=== PATIENT | male | born 1965 | race Caucasian/White ===

== ENCOUNTER 2020-03-07 07:32 | Inpatient (IN) ==
[~2020-03-07 07:32] MED LIST: TOTAL JOINT MIXTURE (100ML) INTRAART ONE
[2020-03-07] MEDS ORDERED: *HR* Midazolam HCl 2 MG/2 ML VIAL ONE ×2 (08:12→09:38)
[2020-03-07] MEDS ORDERED: *HR* FentaNYL (PF) 100 MCG/2 ML VIAL ONE ×3 (08:12→11:04)
[2020-03-07] MEDS ORDERED: ROPIVACAINE/PF/NS 0.25% 1 EACH SYRINGE INTRAART ONE (08:13)
[2020-03-07] MEDS ORDERED: CeFAZolin Syr 2,000MG/20 ML 2,000 MG/20 ML SYRINGE IVPB ONE (08:13)
[2020-03-07] MEDS ORDERED: Ropivacaine/PF 0.5% 30 ML VIAL ONE (08:13)
[2020-03-07] MEDS ORDERED: Ringers Solution, Lactated 1,000 ML IVC SCH ×2 (08:15→12:48)
[2020-03-07] MEDS ORDERED: Ondansetron 4 MG/2 ML VIAL IVP PRN ×2 (08:29→12:48)
[2020-03-07] MEDS ORDERED: *HR* OxyCODONE Immed Rel 5 MG TABLET PO PRN ×2 (08:29→12:48)
[2020-03-07] MEDS ORDERED: Promethazine 6.25 MG in Water for inj. (sterile) 20 ML IVPB PRN (08:29)
[2020-03-07] MEDS ORDERED: *HR* HYDROmorphone PF 0.5 MG/0.5 ML SYRINGE IVP PRN (08:29)
[2020-03-07] MEDS ORDERED: Acetaminophen IV 1,000 MG/100 ML BAG IVPB ONE (08:41)
[2020-03-07] MEDS ORDERED: *HR* Rocuronium Bromide 50 MG/5 ML VIAL ONE (09:38)
[2020-03-07] MEDS ORDERED: Dexamethasone 4 MG/ML VIAL ONE (09:38)
[2020-03-07] MEDS ORDERED: Ondansetron 4 MG/2 ML VIAL ONE (09:38)
[2020-03-07] MEDS ORDERED: *HR* Succinylcholine 200 MG/10 ML VIAL IVP ONE (09:38)
[2020-03-07] MEDS ORDERED: *HR* Propofol 200 MG/20 ML VIAL IVP ONE (09:38)
[2020-03-07] MEDS ORDERED: Lidocaine HCL 4 ML Topical Solution (Laryng-O-Jet Kit Sterile Pak) TP ONE (09:38)
[2020-03-07] MEDS ORDERED: Lidocaine -MPF 2% 2 ML VIAL ONE (09:38)
[2020-03-07] MEDS ORDERED: Ethanol\\Acetic Acid\\Na Ace\\Ben 1,000 ML IRRIG.SOLN IR ONE (09:39)
[2020-03-07] MEDS ORDERED: Vancomycin 1,000 MG VIAL ONE (09:39)
[2020-03-07] MEDS ORDERED: EPHEDrine 50 MG/ML VIAL ONE (10:34)
[2020-03-07 11:53] LABS: Hemoglobin 11.7 g/dL (12.9-16.9)
[2020-03-07] MEDS ORDERED: D5% in Water 1,000 ML IVC PRN (12:48)
[2020-03-07] MEDS ORDERED: *HR* OxyCODONE/APAP 5/325 TABLET PO PRN (12:48)
[2020-03-07] MEDS ORDERED: *HR* Dextrose 50 % in Water (Vial) 50 ML VIAL IVP PRN (12:48)
[2020-03-07] MEDS ORDERED: MOM Conc 10 ML UD.LIQ PO PRN (12:48)
[2020-03-07] MEDS ORDERED: Magnesium Oxide 400 MG TABLET PO SCH (12:48)
[2020-03-07] MEDS ORDERED: Cyanocobalamin (B-12) 1,000 MCG/ML VIAL IM SCH (12:48)
[2020-03-07] MEDS ORDERED: lisinopriL 10 MG TABLET PO SCH (12:48)
[2020-03-07] MEDS ORDERED: Artificial Tears SOLN 15 ML BOTTLE BOTH EYES SCH (12:48)
[2020-03-07] MEDS ORDERED: Naloxone 0.4 MG/ML INJ IVP PRN (12:48)
[2020-03-07] MEDS ORDERED: Cyanocobalamin (B-12) 1,000 MCG TABLET PO SCH (12:48)
[2020-03-07] MEDS ORDERED: Sennosides 8.6 MG TABLET PO PRN (12:48)
[2020-03-07] MEDS ORDERED: Famotidine 20 MG TABLET PO SCH (12:48)
[2020-03-07] MEDS ORDERED: Dextrose Gel 15 GM/37.5 ML TUBE PO PRN ×2 (12:48)
[2020-03-07] MEDS: Insulin LISPRO 300 UNITS/3 ML VIAL SQ SCH ×2 (13:14→16:40)
[2020-03-07] MEDS: Gabapentin 300 MG CAPSULE PO SCH (13:41)
[2020-03-07 14:38] VITALS: BP 132/84
[2020-03-07] MEDS ORDERED: CeFAZolin 2 GM/120 ML BAG IVPB SCH (16:00)
[2020-03-07] MEDS ORDERED: Loratadine 10 MG TABLET PO SCH (18:00)
[2020-03-07] MEDS ORDERED: *HR* Enoxaparin 30 MG/0.3 ML SYRINGE SQ SCH ×2 (18:00)
[2020-03-07] MEDS ORDERED: Insulin LISPRO 300 UNITS/3 ML VIAL SQ SCH (21:00)
[2020-03-09] MEDS ORDERED: Ergocalciferol (VIT D2) 50,000 UNIT (1.25MG) CAP PO SCH (08:57)
== END 2020-03-07 17:12 | disposition home or self-care (01) | DRG 483 ==
LOC: SAMDAY 07:32 → EDSDCBED 07:35 → 3NENU 07:40 → SAMDAY 17:12 → 3NENU 03-17 16:15
PROVIDERS: ADMIT Orthopaedic Surgery; ATTEND Orthopaedic Surgery